=== PATIENT | male | born 1985 | race Two or more races ===

== ENCOUNTER 2017-06-17 09:54 | Emergency (ER) | payer SELFPAY ==
[~2017-06-17] VITALS: Ht 182.9 cm; Wt 78.0 kg
[2017-06-17 11:10] VITALS: BP 118/81
[2017-06-17] MEDS ORDERED: ONDANSETRON HCL 4MG TABLET PO ONE (11:30)
[2017-06-17] MEDS ORDERED: KETOROLAC 60MG/2ML VIAL IM ONE (11:30)
[2017-06-17] MEDS ORDERED: DIAZEPAM 2 MG TABLET PO ONE (11:30)
[2017-06-17] MEDS ORDERED: MORPHINE SULFATE 10 MG/ML CPJ IM ONE (11:30)
== END 2017-06-17 12:56 | disposition home or self-care (01) ==
LOC: ER 12:52
DX: M54.9 Dorsalgia, unspecified (principal); F17.210 Nicotine dependence, cigarettes, uncomplicated
CPT/HCPCS: 96372; 99284; J1885; J2270; Q0162; Z7610